=== PATIENT | male | born 1960 | race Caucasian/White ===

== ENCOUNTER 2017-05-31 08:28 | Emergency (ER) | payer OTHER, MEDICAID ==
[~2017-05-31] VITALS: Ht 182.9 cm; Wt 105.5 kg
[~2017-05-31 08:28] MED LIST: CLIN150 PO; FLUO20SO3 PO; HYDR-2768 PO; LISI-363 PO; WARF7.5T4 PO
[2017-05-31 08:30] VITALS: BP 118/86; PULSE 76; RESP 20; TEMP 98.2; O2SAT 97
[2017-05-31] MEDS ORDERED: FLUO1TAB3 PO (09:22)
[2017-05-31] MEDS ORDERED: WARF-21 PO (09:22)
[2017-05-31] MEDS ORDERED: HYDR25TA5 PO (09:22)
[2017-05-31] MEDS ORDERED: WARF-22 PO (09:22)
[2017-05-31] MEDS ORDERED: LISI-515 PO (09:22)
[2017-05-31] MEDS ORDERED: OMEP20TA PO (09:22)
[2017-05-31 10:28] LABS: PROTHROMBIN TIME - PATIENT 46.9 SEC (9.8-11.6)
--- NOTE | 2017-05-31 10:46 | RADRPT ---
EXAM DATE/TIME: 05/31/2017 10:42 [place] COMPARISON: No previous studies available for comparison. INDICATIONS : Right foor pain across metatarsal area due to kicking wall. MEDICAL HISTORY : None. SURGICAL HISTORY : None. ENCOUNTER: Initial ACUITY: 1 day PAIN SCORE: 10/10 LOCATION: Right foot FINDINGS: Three view examination of the right foot demonstrates a questionable nondisplaced lucency involving t he distal portion of the fifth proximal phalanx. This may represent a nondisplaced fracture. Recommen d correlation with point tenderness. Otherwise, the bony structures are grossly intact. No joint disl ocation. There is soft tissue swelling around the dorsum of the foot. There is a prominent heel spur. . CONCLUSION: 1. Questionable nondisplaced fracture involving the distal portion of the fifth proximal phalanx. Rec ommend correlation with point tenderness. 2. Diffuse soft tissue swelling. 3. Prominent heel spur. Miguelangel Encarnacion MD on May 31, 2017 at 10:43 Board Certified Radiologist. This report was verified electronically.
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
== END 2017-05-31 12:01 | disposition home or self-care (01) ==
LOC: NEPD 09:36
DX: S92.514A Nondisplaced fracture of proximal phalanx of right lesser toe(s), initial encounter for closed fracture (principal); I10 Essential (primary) hypertension; F17.200 Nicotine dependence, unspecified, uncomplicated; X58.XXXA Exposure to other specified factors, initial encounter
CPT/HCPCS: 73630; 85610; 99283; L3260; 29550

== ENCOUNTER 2018-03-26 18:04 | Emergency (ER) | payer OTHER, MEDICAID ==
[~2018-03-26] VITALS: Ht 182.9 cm; Wt 90.0 kg
[~2018-03-26 18:04] MED LIST changes: -CLIN150 PO; +FLUO1TAB3 PO; -FLUO20SO3 PO; -HYDR-2768 PO; +HYDR25TA5 PO; -LISI-363 PO; +LISI-515 PO; +OMEP20TA93 PO; +WARF-21 PO; +WARF-22 PO; -WARF7.5T4 PO
[2018-03-26 18:29] VITALS: BP 98/58; PULSE 98; RESP 15; TEMP 97.5; O2SAT 100
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
--- NOTE | 2018-03-26 21:24 | RADRPT ---
EXAM DATE: 03/26/2018 9:22 PM EDT AGE/SEX: 57 years / Male INDICATIONS: Left distal femur pain, fell CLINICAL DATA: This is the patient's initial encounter. Patient reports that signs and symptoms have been present for 1 day and indicates a pain score of 4/10. MEDICAL/SURGICAL HISTORY: . Left femur fracture . Hardware placement left hip COMPARISON: None. FINDINGS: Old trauma that is healed involving the proximal femoral metadiaphysis. 3 femoral neck screws seen tr aversing the femoral neck. No acute fracture or dislocation. Soft tissues are unremarkable. CONCLUSION: No acute abnormality. Electronically signed by: Kris Ellison MD 03/26/2018 9:23 PM EDT
--- NOTE | 2018-03-26 21:35 | RADRPT ---
EXAM DATE: 03/26/2018 9:24 PM EDT AGE/SEX: 57 years / Male INDICATIONS: Evaluate left knee for trauma, fell CLINICAL DATA: This is the patient's initial encounter. Patient reports that signs and symptoms have been present for 1 day and indicates a pain score of 4/10. MEDICAL/SURGICAL HISTORY: . Hip fracture . Hardware placement left hip COMPARISON: None . FINDINGS: Bony structures are intact and in normal alignment. Joints are intact without dislocation or signifi cant arthropathy. Osseous density is normal. Soft tissues are unremarkable. No radiopaque foreign bodies seen. CONCLUSION: Negative examination Electronically signed by: Kris Ellison MD 03/26/2018 9:34 PM EDT
[2018-03-26 21:57] VITALS: PULSE 90; RESP 16; O2SAT 99
--- NOTE | 2018-03-26 21:59 | RADRPT ---
EXAM DATE: 03/26/2018 9:53 PM EDT AGE/SEX: 57 years / Male INDICATIONS: Trauma, locker fell on patients knee. CLINICAL DATA: This is the patient's initial encounter. Patient reports that signs and symptoms have been present for 1 day and indicates a pain score of 7/10. MEDICAL/SURGICAL HISTORY: Hypertension. Deep venous thrombosis. . ORIF Left femur. RADIATION DOSE: 11.95 CTDI (mGy) COMPARISON: Left knee x-ray 03/26/2018 . TECHNIQUE: Multiple contiguous axial images were acquired using a multirow detector CT scanner witho ut contrast. Multiplanar reconstruction was performed in the sagittal and coronal planes. Using aut omated exposure control and adjustment of the mA and/or kV according to patient size, radiation dose was kept as low as reasonably achievable to obtain optimal diagnostic quality images. DICOM format i mage data is available electronically for review and comparison. FINDINGS: Bones: The bony structures about the knee are in normal alignment. The distal femur and proximal ti jacinta and fibula are intact. No fracture is seen. Joints: No significant arthropathy or bony hypertrophy is seen. Soft Tissues: Small joint effusion. No soft tissue mass is seen. Other: No foreign bodies seen. CONCLUSION: 1. Small joint effusion. Electronically signed by: Kris Ellison MD 03/26/2018 9:58 PM EDT
[2018-03-26 22:08] VITALS: BP 133/71; PULSE 86
[2018-03-26 22:10] LABS: AUTOMATED NEUTROPHIL # 6.4 TH/MM3 (1.8-7.7); BASOPHIL # 0.1 TH/MM3 (0-0.2); BASOPHIL % 0.7 % (0.0-2.0); EOSINOPHIL # 0.1 TH/MM3 (0-0.4); EOSINOPHIL % 1.5 % (0.0-4.0); HEMATOCRIT 32.8 % (39.0-51.0); HEMOGLOBIN 10.8 GM/DL (13.0-17.0); LYMPH % 23.8 % (9.0-44.0); LYMPHOCYTE # 2.3 TH/MM3 (1.0-4.8); MEAN CELL VOLUME 87.9 FL (80.0-100.0); MEAN CORPUSCULAR HEMOGLOBIN 28.9 PG (27.0-34.0); MEAN CORPUSCULAR HGB CONC 32.9 % (32.0-36.0); MEAN PLATELET VOLUME 8.3 FL (7.0-11.0); MONO % 7.5 % (0.0-8.0); MONOCYTE # 0.7 TH/MM3 (0-0.9); NEUT % 66.5 % (16.0-70.0); PLATELET COUNT 439 TH/MM3 (150-450); RED BLOOD COUNT 3.73 MIL/MM3 (4.50-5.90); RED CELL DISTRIBUTION WIDTH 17.3 % (11.6-17.2); WHITE BLOOD COUNT 9.7 TH/MM3 (4.0-11.0)
[2018-03-26 22:26] LABS: INTERNATIONAL NORMALIZED RATIO 4.1 RATIO; PROTHROMBIN TIME - PATIENT 40.8 SEC (9.8-11.6)
[2018-03-26 22:40] LABS: CALCIUM 8.4 MG/DL (8.5-10.1); CREATININE 1.02 MG/DL (0.60-1.30)
== END 2018-03-26 23:02 | disposition home or self-care (01) ==
LOC: NEPD 18:04
DX: S89.92XA Unspecified injury of left lower leg, initial encounter (principal); M25.462 Effusion, left knee; R79.1 Abnormal coagulation profile; I10 Essential (primary) hypertension; F31.9 Bipolar disorder, unspecified; F17.200 Nicotine dependence, unspecified, uncomplicated; Z79.01 Long term (current) use of anticoagulants; Z79.899 Other long term (current) drug therapy; Z88.0 Allergy status to penicillin; Z86.718 Personal history of other venous thrombosis and embolism
CPT/HCPCS: 73552; 73564; 73700; 80048; 85025; 85610; 99285; E0113

== ENCOUNTER 2018-03-30 16:37 | Inpatient (IN) | payer OTHER, MEDICAID, MEDICARE ==
[~2018-03-30] VITALS: Ht 180.3 cm; Wt 88.5 kg
[2018-03-30] MEDS ORDERED: IOHEXOL 350 MG/ML 10 ML VIAL (for RAD DIAG) IVCONTRAST ONE (16:38)
[2018-03-30 16:46] VITALS: BP 83/51; PULSE 110; RESP 16; TEMP 99.4; O2SAT 99
[2018-03-30 18:42] VITALS: BP 123/62; PULSE 97; RESP 18; O2SAT 96
[2018-03-30] MEDS ORDERED: MORPHINE SULFATE 2 MG/ML SYRINGE IV PUSH ONE (18:45)
[2018-03-30] MEDS ORDERED: SODIUM CHLOR 0.9% 1000 ML INJ 1,000 ML IV ONE (18:45)
[2018-03-30] MEDS ORDERED: ONDANSETRON ODT 4 MG TAB PO ONE (18:45)
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
[2018-03-30] MEDS ORDERED: MORPHINE SULFATE 4 MG/ML INJ IV PUSH ONE (19:00)
--- NOTE | 2018-03-30 19:04 | PD ---
Data Data Last Documented VS Vital Signs Date Time Temp Pulse Resp B/P (MAP) Pulse Ox O2 Delivery O2 Flow Rate FiO2 03/30/18 18:42 97 18 123/62 (82) 96 Room Air 03/30/18 16:[address] Abd/Pel W Iv Contrast(Rout) (03/30/18 ) Complete Blood Count With Diff (03/30/18 18:44) Comprehensive Metabolic Panel (03/30/18 18:44) Act Partial Throm Time (Ptt) (03/30/18 18:44) Prothrombin Time / Inr (Pt) (03/30/18 18:44) Alcohol (Ethanol) (03/30/18 18:44) Sodium Chlor 0.9% 1000 Ml Inj (Ns 1000 M (03/30/18 18:45) Ondansetron Odt (Zofran Odt) (03/30/18 18:45) Morphine Inj (Morphine Inj) (03/30/18 19:00) Urinalysis - C+S If Indicated (03/30/18 19:20) Red Blood Cells (Rbc) (03/30/18 19:20) Sodium Chlor 0.9% 250 Ml Inj (Ns 250 Ml (03/30/18 19:30) Type And Screen (03/30/18 19:20) Blood Product Administration (03/30/18 19:52) Sodium Chlor 0.9% 250 Ml Inj (Ns 250 Ml (03/30/18 20:00) Iohexol 350 Inj (Omnipaque 350 Inj) (03/30/18 16:38) Consult Ladarius Gts (03/30/18 ) Admit Order (Ed Use Only) (03/30/18 21:55) Labs Laboratory Tests Test 03/30/18 18:40 03/30/18 18:48 Urine Color YELLOW Urine Turbidity CLEAR Urine pH 5.0 Urine Specific [place] 1.018 Urine Protein NEG mg/dL Urine Glucose (UA) NEG mg/dL Urine Ketones NEG mg/dL Urine Occult Blood NEG Urine Nitrite NEG Urine Bilirubin NEG Urine Urobilinogen 4.0 OR GREATER mg/dL Urine Leukocyte Esterase NEG Urine RBC 1 /hpf Urine WBC 4 /hpf Urine Hyaline Casts 6 /lpf Urine Mucus FEW /lpf Microscopic Urinalysis Comment CULT NOT INDICATED White Blood Count 10.8 TH/MM3 Red Blood Count 2.51 MIL/MM3 Hemoglobin 7.3 GM/DL Hematocrit 22.5 % Mean Corpuscular Volume 89.6 FL Mean Corpuscular Hemoglobin 29.3 PG Mean Corpuscular Hemoglobin Concent 32.7 % Red Cell Distribution Width 16.7 % Platelet Count 393 TH/MM3 Mean Platelet Volume 8.7 FL Neutrophils (%) (Auto) 62.8 % Lymphocytes (%) (Auto) 20.5 % Monocytes (%) (Auto) 13.8 % Eosinophils (%) (Auto) 2.3 % Basophils (%) (Auto) 0.6 % Neutrophils # (Auto) 6.8 TH/MM3 Lymphocytes # (Auto) 2.2 TH/MM3 Monocytes # (Auto) 1.5 TH/MM3 Eosinophils # (Auto) 0.3 TH/MM3 Basophils # (Auto) 0.1 TH/MM3 CBC Comment DIFF FINAL Differential Comment Prothrombin Time 18.8 SEC Prothromb Time International Ratio 1.9 RATIO Activated Partial Thromboplast Time 32.5 SEC Blood Urea Nitrogen 25 MG/DL Creatinine 1.04 MG/DL Random Glucose 94 MG/DL Total Protein 7.8 GM/DL Albumin 3.2 GM/DL Calcium Level 8.1 MG/DL Alkaline Phosphatase 79 U/L Aspartate Amino Transf (AST/SGOT) 39 U/L Alanine Aminotransferase (ALT/SGPT) 28 U/L Total Bilirubin 0.8 MG/DL Sodium Level 137 MEQ/L Potassium Level 3.3 MEQ/L Chloride Level 103 MEQ/L Carbon Dioxide Level 22.3 MEQ/L Anion Gap 12 MEQ/L Estimat Glomerular Filtration Rate 74 ML/MIN Ethyl Alcohol Level LESS THAN 3 MG/DL [facility] Medical Record Reviewed: Yes Supervised Visit with KENNEDI: No Narrative Course During the course of the patient's emergency department visit, the patient's history, examination, and differential diagnosis were reviewed with the patient. The patient was placed on a clinical research monitor with oximetry and frequent blood pressure monitoring. The patient had IV access obtained and blood work sent for analysis. The patient's case was checked out to me by Dr. Martínez. Please see his complete history and physical. The patient's case was checked out to me at the conclusion of his shift. The patient presents after a reported history of having trauma to the left lower extremity on March 26 status post workup in the emergency department. X-rays showed no acute abnormality. CT scan of the knee without contrast on the left showed a small joint effusion, no other acute abnormality. At that time the patient was noted to have an elevated INR and is chronically anticoagulated related to a prior history of DVT. He held the Coumadin for 2 days and then restarted on Friday. He then began to experience hematuria. Patient has currently undergoing workup for possible traumatic injury in the retroperitoneum, versus injury to the kidney. The patient was initially provided normal saline 1 L IV fluid bolus, morphine 2 mg IV, Zofran 4 mg IV. The patient's laboratory studies were reviewed and remarkable for a white count of 10.8, hemoglobin 7.3 which is decreased from 10.8 on March 26 suspicious for an underlying area of bleeding, platelets 393 with 13.8 monocytes. The patient has been typed and crossmatched for 4 units of packed red blood cells to be placed on hold, 2 units to be administered immediately. CMP is remarkable for potassium of 3.3, BUN 25, GFR 74, calcium 8.1, AST 39, albumin 3.2. PT 18.8, INR has improved down to 1.9, PTT 32.5, alcohol level is less than 3. Radiology studies were reviewed and remarkable for Last Impressions Abdomen/Pelvis CT 03/30/18 0000 Signed Impressions: CONCLUSION: 1. No acute finding is identified to explain the patient's hematuria. No renal stones are seen. There is an 8 mm low-density lesion in the left kidney that i s too small to characterize. 2. Swelling of the left proximal thigh and mild edema in the left iliac fossa adjacent to the illiacus muscle which also demonstrates mild asymmetric thicken ing. A call has been placed out to the trauma surgeon on-call regarding this patient' s injury associated with anemia. The patient's results were discussed with the patient, including the plan of care. I explained that further testing and/ or monitoring is indicated based on the patient's history, examination, and/ or laboratory findings. Therefore, I recommended admission for additional evaluation. The patient expressed understanding and was agreeable with this plan. The patient was admitted to the hospital in guarded condition and [facility] Phys[facility] Communication Physician Communication The patient's case including history, pertinent physical examination findings, and laboratory studies were discussed with Dr. Watkins. The patient's case was discussed with Dr. Rush, the hospitalist. It was agreed that the patient would be admitted to the hospitalist service. Diagnosis Primary Impression: Traumatic hematoma of left thigh Qualified Codes: S70.12XD - Contusion of left thigh, subsequent encounter Additional Impression: Anemia Qualified Codes: D62 - Acute posthemorrhagic anemia Admitting Information Admitting Physician Requests: Admit Condition: Stable Abbey Amador MD Mar 30, 2018 19:04
[2018-03-30 19:16] LABS: AUTOMATED NEUTROPHIL # 6.8 TH/MM3 (1.8-7.7); BASOPHIL # 0.1 TH/MM3 (0-0.2); BASOPHIL % 0.6 % (0.0-2.0); EOSINOPHIL # 0.3 TH/MM3 (0-0.4); EOSINOPHIL % 2.3 % (0.0-4.0); HEMATOCRIT 22.5 % (39.0-51.0); HEMOGLOBIN 7.3 GM/DL (13.0-17.0); LYMPH % 20.5 % (9.0-44.0); LYMPHOCYTE # 2.2 TH/MM3 (1.0-4.8); MEAN CELL VOLUME 89.6 FL (80.0-100.0); MEAN CORPUSCULAR HEMOGLOBIN 29.3 PG (27.0-34.0); MEAN CORPUSCULAR HGB CONC 32.7 % (32.0-36.0); MEAN PLATELET VOLUME 8.7 FL (7.0-11.0); MONO % 13.8 % (0.0-8.0); MONOCYTE # 1.5 TH/MM3 (0-0.9); NEUT % 62.8 % (16.0-70.0); PLATELET COUNT 393 TH/MM3 (150-450); RED BLOOD COUNT 2.51 MIL/MM3 (4.50-5.90); RED CELL DISTRIBUTION WIDTH 16.7 % (11.6-17.2); WHITE BLOOD COUNT 10.8 TH/MM3 (4.0-11.0)
[2018-03-30 19:26] LABS: ALBUMIN 3.2 GM/DL (3.4-5.0); AST (GOT) 39 U/L (15-37); BICARBONATE 22.3 MEQ/L (21.0-32.0); BLOOD UREA NITROGEN 25 MG/DL (7-18); CALCIUM 8.1 MG/DL (8.5-10.1); CHLORIDE 103 MEQ/L (98-107); CREATININE 1.04 MG/DL (0.60-1.30); GLOMERULAR FILTRATION RATE 74 ML/MIN (>89); GLUCOSE,RANDOM 94 MG/DL (74-106); SODIUM (NA) 137 MEQ/L (136-145)
[2018-03-30 19:27] LABS: ALT (GPT) 28 U/L (12-78)
[2018-03-30 19:28] LABS: INTERNATIONAL NORMALIZED RATIO 1.9 RATIO; PROTHROMBIN TIME - PATIENT 18.8 SEC (9.8-11.6)
[2018-03-30 19:29] LABS: ALKALINE PHOSPHATASE 79 U/L (45-117); TOTAL BILIRUBIN ADULT 0.8 MG/DL (0.2-1.0); TOTAL PROTEIN 7.8 GM/DL (6.4-8.2)
[2018-03-30] MEDS ORDERED: SODIUM CHLOR 0.9% 250 ML INJ 250 ML IV ONE ×2 (19:30→20:00)
[2018-03-30 20:27] LABS: BILIRUBIN, URINE NEG (NEG); BLOOD, URINE NEG (NEG); GLUCOSE,URINE NEG (NEG); HYALINE CAST, URINE 6 /lpf (RARE); KETONE, URINE NEG (NEG); MUCUS URINE FEW /lpf (OCC); NITRITE,URINE NEG (NEG); URINE COLOR YELLOW (YELLW/STRAW); URINE LEUKOCYTE ESTERASE NEG (NEG)
--- NOTE | 2018-03-30 21:14 | RADRPT ---
EXAM DATE: 03/30/2018 8:12 PM EDT AGE/SEX: 57 years / Male INDICATIONS: Hematuria, previous INJURY TO LOWER PELVIS AND LEGS LAST FRIDAY CLINICAL DATA: This is the patient's initial encounter. Patient reports that signs and symptoms have been present for 1 day and indicates a pain score of 6/10. MEDICAL/SURGICAL HISTORY: Hypertension. Deep venous thrombosis. None. ORAL CONTRAST: No oral contrast ingested. RADIATION DOSE: 10.04 CTDI (mGy) COMPARISON: No prior exams available for comparison. TECHNIQUE: Multiple contiguous axial images were obtained through the abdomen and pelvis following b olus infusion of 70 ml Omnipaque 350 (iohexol) nonionic water-soluble contrast as a single exam dos e. No oral contrast ingested. Using automated exposure control and adjustment of the mA and/or kV ac cording to patient size, radiation dose was kept as low as reasonably achievable to obtain optimal di agnostic quality images. DICOM format image data is available electronically for review and comparis on. FINDINGS: Lower chest: No acute abnormality is identified. Hepatobiliary: No focal liver lesion is identified. Hepatic vasculature demonstrates no abnormality. No calcified gallstones are present. Kidneys: No hydronephrosis, stone, or mass. There is an 8 mm low-density lesion at the lower pole the left kidney that is too small to characterize. Adrenal Glands: Within normal limits. Spleen: Within normal limits. Pancreas: Within normal limits. Vascular: The aorta is nonaneurysmal. Bowel/Mesentery: The stomach and small bowel demonstrate no abnormality. No acute colon abnormality i s seen. There is no free intraperitoneal air or fluid. A small hiatal hernia is present. Abdominal Wall: No hernia is visualized. Retroperitoneum: No lymphadenopathy. Bladder: No wall thickening or mass. Reproductive: Within normal limits. Inguinal: No lymphadenopathy or hernia. Musculoskeletal: There are pins within the left proximal femur and these causes beam hardening artifa ct. Sclerosis in the left femoral head likely represents avascular necrosis. There is soft tissue swe lling of the left proximal thigh. Mild asymmetric thickening of the left iliac is muscle is also appr eciated with mild stranding in the adjacent fat. CONCLUSION: 1. No acute finding is identified to explain the patient's hematuria. No renal stones are seen. Ther e is an 8 mm low-density lesion in the left kidney that is too small to characterize. 2. Swelling of the left proximal thigh and mild edema in the left iliac fossa adjacent to the illiac us muscle which also demonstrates mild asymmetric thickening. Electronically signed by: Kris Bonilla MD 03/30/2018 9:13 PM EDT
[2018-03-30 22:25] VITALS: BP 113/71; PULSE 93; RESP 20; TEMP 98; O2SAT 100
[2018-03-30 22:50] VITALS: BP 117/58; PULSE 88; RESP 20; TEMP 98.5; O2SAT 100
[2018-03-31] VITALS (7 sets, daily range): BP systolic 99–141; BP diastolic 56–74; PULSE 67–90; RESP 18–20; TEMP 97.7–98.7; O2SAT 97–100
[2018-03-31] MEDS ORDERED: BISACODYL 10 MG SUPP RECTAL PRN (00:30)
[2018-03-31] MEDS ORDERED: ONDANSETRON ODT 4 MG TAB PO PRN (00:30)
[2018-03-31] MEDS ORDERED: HALOPERIDOL LACTATE 5 MG/ML AMP IM PRN (00:30)
[2018-03-31] MEDS ORDERED: LORazepam 2 MG TAB PO PRN (00:30)
[2018-03-31] MEDS ORDERED: SODIUM CHLORIDE 0.9% FLUSH 10 ML FLUSH IV FLUSH PRN (00:30)
[2018-03-31] MEDS ORDERED: MAGNESIUM HYDROXIDE SUSP 30 ML CUP PO PRN (00:30)
[2018-03-31] MEDS ORDERED: ACETAMINOPHEN 325 MG TAB PO PRN (00:30)
[2018-03-31] MEDS ORDERED: SENNOSIDES 8.6 MG TAB PO PRN (00:30)
[2018-03-31] MEDS ORDERED: NALOXONE HCL 0.4 MG/ML AMP IV PUSH PRN (00:30)
[2018-03-31] MEDS ORDERED: LACTULOSE SYRUP 20 GM/30 ML CUP PO PRN (00:30)
[2018-03-31] MEDS ORDERED: LORazepam 1 MG TAB PO PRN (00:30)
[2018-03-31] MEDS ORDERED: FLUMAZENIL 0.5 MG/5 ML VIAL IV PUSH PRN (00:30)
[2018-03-31] MEDS ORDERED: LORazepam 2 MG/ML VIAL IV PUSH PRN ×4 (00:30)
[2018-03-31] MEDS ORDERED: POTASSIUM CHLORIDE 20 MEQ CONTROLLED RELEASE TAB PO ONE (03:30)
--- NOTE | 2018-03-31 03:39 | HHI.HP ---
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 The patient was seen in the emergency department on 03/26/18 when a metal walker fell onto his left leg while he was sitting outside a convenience store. The patient reports he has been out of the house for the past 6 weeks binge drinking. He states that his left leg has continued to swell since the accident. He denies any shortness of breath or lightheadedness. No dizziness. No loss of consciousness. No fevers/chills. No chest pain or shortness of breath. No abdominal pain. No nausea/vomiting/diarrhea. Of note, the patient was noted to be supratherapeutic on his Coumadin when he was seen in the ED on and was told to hold off on his Coumadin until Friday when he resumed it. 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 MUST HAVE BEEN ENTERED IN ERROR ON 05/21/17 Uncoded Allergies: NKDA (Allergy, Severe, 3/7/12) Family History Negative for CAD/DM Social History Smokes approximately 1 pack per day. Has been drinking 4-516 ounce cans of beer daily. Denies illicit drugs. Physical Exam Vital Signs Vital Signs Date Time Temp Pulse Resp B/P (MAP) Pulse Ox O2 Delivery O2 Flow Rate FiO2 03/31/18 02:25 98.7 85 18 112/57 98 03/31/18 02:10 67 18 141/63 99 03/31/18 01:00 98.6 87 20 99/56 98 03/30/18 22:50 98.5 88 20 117/58 100 03/30/18 22:25 98.0 93 20 113/71 100 03/30/18 18:42 97 18 123/62 (82) 96 Room Air 03/30/18 16:46 99.4 110 16 83/51 (62) 99 Physical Exam GENERAL: male sitting up in bed SKIN: No rashes, ecchymoses or lesions. Cool and dry. HEAD: Atraumatic. Normocephalic. No temporal or scalp tenderness. EYES: Pupils equal round and reactive. Extraocular motions intact. No scleral icterus. No injection or drainage. ENT: Nose without bleeding, purulent drainage or septal hematoma. Throat without erythema, tonsillar hypertrophy or exudate. Uvula midline. Airway patent. NECK: Trachea midline. No JVD or lymphadenopathy. Supple, nontender, no meningeal signs. CARDIOVASCULAR: Regular rate and rhythm without murmurs, gallops, or rubs. RESPIRATORY: Clear to auscultation. Breath sounds equal bilaterally. No wheezes , rales, or rhonchi. GASTROINTESTINAL: Abdomen soft, non-tender, nondistended. No hepato-splenomegaly , or palpable masses. No guarding. MUSCULOSKELETAL: Left lower extremity significantly swollen with ecchymoses over the lateral aspect of the left thigh. Tender to palpation in that region. NEUROLOGICAL: Awake and alert. Cranial nerves II through XII intact. Motor and sensory grossly within normal limits. Normal speech. Laboratory Laboratory Tests Test 03/30/18 18:40 03/30/18 18:48 Urine Color YELLOW Urine Turbidity CLEAR Urine pH 5.0 Urine Specific [place] 1.018 Urine Protein NEG Urine Glucose (UA) NEG Urine Ketones NEG Urine Occult Blood NEG Urine Nitrite NEG Urine Bilirubin NEG Urine Urobilinogen 4.0 OR GREATER Urine Leukocyte Esterase NEG Urine RBC 1 Urine WBC 4 Urine Hyaline Casts 6 Urine Mucus FEW Microscopic Urinalysis Comment CULT NOT INDICATED White Blood Count 10.8 Red Blood Count 2.51 Hemoglobin 7.3 Hematocrit 22.5 Mean Corpuscular Volume 89.6 Mean Corpuscular Hemoglobin 29.3 Mean Corpuscular Hemoglobin Concent 32.7 Red Cell Distribution Width 16.7 Platelet Count 393 Mean Platelet Volume 8.7 Neutrophils (%) (Auto) 62.8 Lymphocytes (%) (Auto) 20.5 Monocytes (%) (Auto) 13.8 Eosinophils (%) (Auto) 2.3 Basophils (%) (Auto) 0.6 Neutrophils # (Auto) 6.8 Lymphocytes # (Auto) 2.2 Monocytes # (Auto) 1.5 Eosinophils # (Auto) 0.3 Basophils # (Auto) 0.1 CBC Comment DIFF FINAL Differential Comment Prothrombin Time 18.8 Prothromb Time International Ratio 1.9 Activated Partial Thromboplast Time 32.5 Blood Urea Nitrogen 25 Creatinine 1.04 Random Glucose 94 Total Protein 7.8 Albumin 3.2 Calcium Level 8.1 Alkaline Phosphatase 79 Aspartate Amino Transf (AST/SGOT) 39 Alanine Aminotransferase (ALT/SGPT) 28 Total Bilirubin 0.8 Sodium Level 137 Potassium Level 3.3 Chloride Level 103 Carbon Dioxide Level 22.3 Anion Gap 12 Estimat Glomerular Filtration Rate 74 Ethyl Alcohol Level LESS THAN 3 Result Diagram: 03/30/18184703/30/181847 Caprini VTE Risk Assessment Caprini VTE Risk Assessment: Mod/High Risk (score >= 2) Caprini Risk Assessment Model Point Value = 1 Point Value = 2 Point Value = 3 Point Value = 5 Age 41-60 Minor surgery BMI > 25 kg/m2 Swollen legs Varicose veins or History of unexplained or recurrent spontaneous Oral contraceptives or hormone replacement Sepsis (< 1 month) Serious lung disease, including pneumonia (< 1 month) Abnormal pulmonary function Acute myocardial infarction Congestive heart failure (< 1 month) History of inflammatory bowel disease Medical patient at bed rest Age 61-74 Arthroscopic surgery Major open surgery (> 45 min) Laparoscopic surgery (> 45 min) Malignancy Confined to bed (> 72 hours) Immobilizing plaster cast Central venous access Age >= 75 History of VTE Family history of VTE Factor V Leiden Prothrombin [id number] Lupus anticoagulant Anticardiolipin antibodies Elevated serum homocysteine Heparin-induced thrombocytopenia Other congenital or acquired thrombophilia Stroke (< 1 month) Elective arthroplasty Hip, pelvis, or leg fracture Acute spinal cord injury (< 1 month) Prophylaxis Regimen Total Risk Factor Score Risk Level Prophylaxis Regimen 0-1 Low Early ambulation 2 Moderate Order ONE of the following: *Sequential Compression Device (SCD) *Heparin 5000 units SQ BID 3-4 Higher Order ONE of the following medications: *Heparin 5000 units SQ TID *Enoxaparin/Lovenox 40 mg SQ daily (WT < 150 kg, CrCl > 30 mL/min) *Enoxaparin/Lovenox 30 mg SQ daily (WT < 150 kg, CrCl > 10-29 mL/min) *Enoxaparin/Lovenox 30 mg SQ BID (WT < 150 kg, CrCl > 30 mL/min) AND/OR *Sequential Compression Device (SCD) 5 or more Highest Order ONE of the following medications: *Heparin 5000 units SQ TID (Preferred with Epidurals) *Enoxaparin/Lovenox 40 mg SQ daily (WT < 150 kg, CrCl > 30 mL/min) *Enoxaparin/Lovenox 30 mg SQ daily (WT < 150 kg, CrCl > 10-29 mL/min) *Enoxaparin/Lovenox 30 mg SQ BID (WT < 150 kg, CrCl > 30 mL/min) AND *Sequential Compression Device (SCD) Assessment and Plan Assessment and Plan Assessment/plan: 1. Hematoma/anemia CT of the abdomen/pelvis significant for swelling of the left proximal thigh and mild edema in the left iliac fossa adjacent to the iliac muscle which also demonstrates mild asymmetric thickening Given the patient's anemia and recent trauma, concern for traumatic hematoma Trauma surgery consulted, appreciate recommendations Transfuse 2 units packed red blood cells 2. Alcohol abuse Thiamine/folate/multivitamins Monitor for signs of withdrawal CIWA protocol 3. Hypertension Continue home lisinopril and hydrochlorothiazide 4. Bipolar disorder Continue home Prozac 5. History of DVT/PE Holding home Coumadin for possible traumatic hematoma Resume once cleared by trauma surgery FEN N.p.o. Electrolytes: Status post p.o. potassium, monitor BMP Holding pharmacologic anticoagulation given possible hematoma Physician Certification 2 Midnight Certification Type: Admission for Inpatient Services Order for Inpatient Services The services are ordered in accordance with Medicare regulations or non- Medicare payer requirements, as applicable. In the case of services not specified as inpatient-only, they are appropriately provided as inpatient services in accordance with the 2-midnight benchmark. Estimated LOS (days): 2 2 days is the estimated time the patient will need to remain in the hospital, assuming treatment plan goals are met and no additional complications. Post-Hospital Plan: Not yet determined Micaela Rush MD Mar 31, 2018 03:39
[2018-03-31] MEDS: THIAMINE INJ 100 MG in SODIUM CHLORIDE 0.9% INJ 100 ML IV SCH (03:49)
[2018-03-31] MEDS: MULTIVITAMIN INJ 10 ML, FOLIC ACID INJ 1 MG in SODIUM CHLORID 0.9% 500 ML INJ 500 ML IV SCH (03:49)
--- NOTE | 2018-03-31 08:46 | MB ---
cc: Shahbaz Watkins MD DATE: 03/31/2018 CHIEF COMPLAINT: Left leg swelling status post large locker fell on the patient's lap, hematuria, anemia, blood loss. HISTORY OF PRESENT ILLNESS: The patient is a 57-year-old male who is status post a large 300 pound locker that fell on the patient's lap. This occurred 03/26/2018. The patient was initially seen in the emergency department with evaluation and scan. I was an essentially negative workup. The patient did have a supratherapeutic INR at that time and was told to hold off his Coumadin. The patient restarted his Coumadin and did note some significant swelling of his left leg and thigh with some pain. Therefore, the patient returned to the emergency department for further evaluation. The patient had a CT scan showing a thickening of his left leg and thigh. The patient also further complained of hematuria and was noted to have a hemoglobin of 7.3. Surgery was consulted for further evaluation. On my exam, the patient was noted to have several medical issues again including DVT on Coumadin. Further notes a history of TBI, ETOH abuse, hypertension, bipolar and previous trauma history many years ago for which he required left lower extremity reconstruction for fractures. The patient further noted complaints of hematuria for which he had a UA showing clear urine and 1 RBC. The patient further denies fevers, chills, dizziness, nausea, vomiting or dysuria. PAST MEDICAL HISTORY: DVT, bipolar, hypertension, ETOH abuse, TBI left femur fracture. PAST SURGICAL HISTORY: Left hip and left femur ORIF. Chest tube. SOCIAL HISTORY: Daily ETOH 6 pack, positive smoking 1 pack per day. Denies IVDA. ALLERGIES: PENICILLIN. MEDICATIONS: Coumadin, see EMR. FAMILY HISTORY: Denies diabetes or hypertension. REVIEW OF SYSTEMS: GENERAL: Denies fever or pain. HEENT: Denies eye pain, ear pain. NECK: Denies swelling or pain. LUNGS: Denies cough or wheeze. HEART: Denies palpitation or chest pain. ABDOMEN: Denies nausea or vomiting. GENITOURINARY: Complaints of hematuria. EXTREMITIES: Complains of left lower extremity pain and edema. NEUROLOGIC: History of traumatic brain injury. PHYSICAL EXAMINATION: GENERAL: No acute distress. VITAL SIGNS: Temperature 99.4, pulse 97, respirations 18, blood pressure 123/62, saturation 96%. HEENT: Pupils equal, round, and reactive. NECK: Supple. Trachea midline. LUNGS: Bilateral expansion, clear. HEART: S1, S2 regular. ABDOMEN: Soft, nontender, nondistended. MUSCULOSKELETAL: Ecchymosis over the anterior thigh, tenderness to palpation left lower thigh. Healed surgical scars. Positive distal pulses all extremities. NEUROLOGIC: 5/5 motor in all extremities. GCS of 15. PSYCHIATRIC: Appropriate mood, ETOH abuse. LABORATORY AND DIAGNOSTIC DATA: WBC 10.8, hemoglobin 7.3, hematocrit 22.5, platelets 393. Sodium 137, potassium 3.3, chloride 103, BUN 25, creatinine 1, glucose 94, albumin 3.2. INR 1.9. CT abdomen and pelvis reviewed by myself showing swelling in the left proximal thigh, mild edema adjacent to the iliac, asymmetric thickening. ASSESSMENT: 1. The patient is a 57-year-old male status post large locker falling on lap with left lower extremity pain and swelling to thigh and ecchymosis anemia. 2. Anemia of blood loss. 3. Hematuria. 4. Multiple medical problems. 5. History of Coumadin and deep venous thrombosis. PLAN: Had a full workup of patient with above main issues. At this point, recommend left lower extremity elevation, continue observation. The patient does have some swelling and thickening with some edema; however, I do not see any surgical drainable fluid at this time. The patient does have palpable distal pulses. Further, I recommend to hold Coumadin. The patient to receive 2 units of PRBCs and IV fluids and vitals appear stable following this. Await and recheck hemoglobin for blood loss anemia and recheck coag's including INR. In regards to hematuria, the patient did have a UA that did not appear too significant. If hematuria continues, would recommend a urology consult for possible cystoscopy for further evaluation. We will continue to follow. From the surgical standpoint, the patient can have a regular diet. MD PRANAY Ware/IVORY , 07:58 AM , 08:45 AM
[2018-03-31] MEDS: SODIUM CHLORIDE 0.9% FLUSH 10 ML FLUSH IV FLUSH SCH ×2 (09:00→21:10)
[2018-03-31] MEDS: DOCUSATE SODIUM 50 MG/SENNA 8.6 MG TAB PO SCH ×2 (09:00→21:09)
[2018-03-31] MEDS: LISINOPRIL 20 MG TAB PO SCH (09:57)
[2018-03-31] MEDS: PANTOPRAZOLE SOD 20 MG DELAYED RELEASE TAB PO SCH (09:57)
[2018-03-31] MEDS: HYDROCHLOROTHIAZIDE 25 MG TAB PO SCH (09:57)
[2018-03-31] MEDS: FLUoxetine HCL 20 MG CAP PO SCH (09:57)
[2018-03-31 10:29] LABS: AUTOMATED NEUTROPHIL # 5.1 TH/MM3 (1.8-7.7); BASOPHIL # 0.1 TH/MM3 (0-0.2); BASOPHIL % 1.1 % (0.0-2.0); EOSINOPHIL # 0.2 TH/MM3 (0-0.4); EOSINOPHIL % 2.9 % (0.0-4.0); HEMATOCRIT 25.1 % (39.0-51.0); HEMOGLOBIN 8.5 GM/DL (13.0-17.0); LYMPH % 21.8 % (9.0-44.0); LYMPHOCYTE # 1.9 TH/MM3 (1.0-4.8); MEAN CELL VOLUME 89.6 FL (80.0-100.0); MEAN CORPUSCULAR HEMOGLOBIN 30.4 PG (27.0-34.0); MONO % 13.9 % (0.0-8.0); MONOCYTE # 1.2 TH/MM3 (0-0.9); NEUT % 60.3 % (16.0-70.0); PLATELET COUNT 352 TH/MM3 (150-450); RED BLOOD COUNT 2.81 MIL/MM3 (4.50-5.90); RED CELL DISTRIBUTION WIDTH 15.5 % (11.6-17.2); WHITE BLOOD COUNT 8.5 TH/MM3 (4.0-11.0)
[2018-03-31 11:08] LABS: BICARBONATE 24.8 MEQ/L (21.0-32.0); CALCIUM 8.3 MG/DL (8.5-10.1); CREATININE 0.76 MG/DL (0.60-1.30)
[2018-03-31] MEDS: SODIUM CHLOR 0.9% 1000 ML INJ 1,000 ML IV SCH (13:55)
[2018-04-01] VITALS: BP 125/79; PULSE 84; RESP 18; TEMP 98.1; O2SAT 99
[2018-04-01] MEDS: THIAMINE INJ 100 MG in SODIUM CHLORIDE 0.9% INJ 100 ML IV SCH (01:27)
[2018-04-01] MEDS: MULTIVITAMIN INJ 10 ML, FOLIC ACID INJ 1 MG in SODIUM CHLORID 0.9% 500 ML INJ 500 ML IV SCH (01:27)
[2018-04-01] MEDS: SODIUM CHLOR 0.9% 1000 ML INJ 1,000 ML IV SCH (01:29)
[2018-04-01 08:00] VITALS: BP 113/85; PULSE 78; RESP 20; TEMP 97.6; O2SAT 98
[2018-04-01] MEDS ORDERED: WARF-21 PO (08:48)
[2018-04-01] MEDS: DOCUSATE SODIUM 50 MG/SENNA 8.6 MG TAB PO SCH (09:00)
[2018-04-01] MEDS: SODIUM CHLORIDE 0.9% FLUSH 10 ML FLUSH IV FLUSH SCH (09:00)
[2018-04-01] MEDS: PANTOPRAZOLE SOD 20 MG DELAYED RELEASE TAB PO SCH (09:03)
[2018-04-01] MEDS: FLUoxetine HCL 20 MG CAP PO SCH (09:03)
[2018-04-01] MEDS: HYDROCHLOROTHIAZIDE 25 MG TAB PO SCH (09:03)
[2018-04-01] MEDS: LISINOPRIL 20 MG TAB PO SCH (09:03)
[2018-04-01 09:07] LABS: AUTOMATED NEUTROPHIL # 5.2 TH/MM3 (1.8-7.7); BASOPHIL # 0.1 TH/MM3 (0-0.2); BASOPHIL % 0.6 % (0.0-2.0); EOSINOPHIL # 0.2 TH/MM3 (0-0.4); EOSINOPHIL % 2.9 % (0.0-4.0); HEMATOCRIT 25.3 % (39.0-51.0); HEMOGLOBIN 8.6 GM/DL (13.0-17.0); LYMPH % 20.7 % (9.0-44.0); LYMPHOCYTE # 1.7 TH/MM3 (1.0-4.8); MEAN CELL VOLUME 88.7 FL (80.0-100.0); MEAN CORPUSCULAR HEMOGLOBIN 30.1 PG (27.0-34.0); MEAN CORPUSCULAR HGB CONC 33.9 % (32.0-36.0); MEAN PLATELET VOLUME 8.5 FL (7.0-11.0); MONO % 13.4 % (0.0-8.0); MONOCYTE # 1.1 TH/MM3 (0-0.9); NEUT % 62.4 % (16.0-70.0); PLATELET COUNT 327 TH/MM3 (150-450); RED BLOOD COUNT 2.85 MIL/MM3 (4.50-5.90); RED CELL DISTRIBUTION WIDTH 15.7 % (11.6-17.2); WHITE BLOOD COUNT 8.3 TH/MM3 (4.0-11.0)
--- NOTE | 2018-04-01 09:27 | HHI.PR ---
Subjective Remarks Patient says he is feeling well. Reports pain is under control. Denies any chest pain shortness of breath. Denies nausea or vomiting. Objective Vital Signs Date Time Temp Pulse Resp B/P (MAP) Pulse Ox O2 Delivery O2 Flow Rate FiO2 04/01/18 08:00 97.6 78 20 113/85 (94) 98 04/01/18 00:00 98.1 84 18 125/79 (94) 99 03/31/18 20:00 98.4 86 18 130/70 (90) 97 03/31/18 16:00 97.9 77 18 110/68 (82) 100 03/31/18 12:00 97.7 79 18 113/73 (86) 98 I/O 03/31/18 03/31/18 03/31/18 04/01/18 04/01/18 04/01/18 07:00 15:00 23:00 07:00 15:00 23:00 Intake Total 1200 ml 510.2 ml 1600 ml Output Total 350 ml 800 ml 750 ml Balance 1200 ml 160.2 ml 800 ml -750 ml Intake Oral 1600 ml IV Total 510.2 ml Packed Cells 800 ml Blood Product IV Normal Saline Flush 400 ml Output Urine Total 350 ml 800 ml 750 ml # Voids 0 # Bowel Movements 1 Result Diagram: 04/01/18 0811 03/31/18 0958 Objective Remarks GENERAL: Patient lying in bed. Eating breakfast. Appears comfortable. SKIN: Warm and dry. HEAD: Normocephalic. EYES: No scleral icterus. No injection or drainage. NECK: Supple, trachea midline. No JVD or lymphadenopathy. CARDIOVASCULAR: Regular rate and rhythm without murmurs, gallops, or rubs. RESPIRATORY: Breath sounds equal bilaterally. No accessory muscle use. GASTROINTESTINAL: Abdomen soft, non-tender, nondistended. MUSCULOSKELETAL: No cyanosis, or edema. Hematoma continues left hip. No change. 2 x 2 centimeter abrasion to left anterior [place] without any surrounding erythema. Patient says he will make sure to address this with primary care on short-term follow-up BACK: Nontender without obvious deformity. No CVA tenderness. A/P Assessment and Plan //Hematoma/anemia CT of the abdomen/pelvis significant for swelling of the left proximal thigh and mild edema in the left iliac fossa adjacent to the iliac muscle which also demonstrates mild asymmetric thickening Given the patient's anemia and recent trauma, concern for traumatic hematoma Trauma surgery consulted, appreciate recommendations Transfuse 2 units packed red blood cells = Hemoglobin stable 8.6 today. Will have patient continue his warfarin tomorrow , decrease dose to 7.5 mg daily and follow-up with primary care. //Alcohol abuse Thiamine/folate/multivitamins Monitor for signs of withdrawal CIMO protocol = No signs of withdrawal. Cessation counseling discussed. 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 Electrolytes: Status post p.o. potassium, monitor BMP Restart lower dose of warfarin tomorrow. Follow-up with PCP in 2 days Discharge Planning Discharge home. Restart lower dose of warfarin tomorrow. Calixto Peñaloza MD Apr 01, 2018 09:27
--- NOTE | 2018-04-01 09:34 | HHI.DS ---
Discharge Summary Admission Date Mar 30, 2018 at 21:57 Discharge Date: Apr 01, 2018 Admitting Diagnosis Thigh Hematoma, Anemia, s/p trauma (1) Kidney lesion ICD Code: N28.9 - Disorder of kidney and ureter, unspecified (2) Traumatic hematoma of left thigh ICD Code: S70.12XA - Contusion of left thigh, initial encounter Status: Acute (3) Anemia ICD Code: D64.9 - Anemia, unspecified Status: Acute Procedures No invasive procedures. Brief History - From Admission 57-year-old male with a past medical history significant for previous DVT/PE anticoagulated on Coumadin, bipolar disorder, hypertension, alcohol abuse and history of TBI presents to the emergency department for the evaluation of hematuria. The patient was seen in the emergency department on 03/26/18 when a metal walker fell onto his left leg while he was sitting outside a convenience store. The patient reports he has been out of the house for the past 6 weeks binge drinking. He states that his left leg has continued to swell since the accident. He denies any shortness of breath or lightheadedness. No dizziness. No loss of consciousness. No fevers/chills. No chest pain or shortness of breath. No abdominal pain. No nausea/vomiting/diarrhea. Of note, the patient was noted to be supratherapeutic on his Coumadin when he was seen in the ED on and was told to hold off on his Coumadin until Friday when he resumed it. CBC/BMP: 04/01/18 0811 03/31/18 0958 Significant Findings Laboratory Tests Test 03/30/18 18:40 03/30/18 18:48 03/31/18 09:58 04/01/18 08:11 Urine Urobilinogen 4.0 OR GREATER mg/dL (LESS Urine Mucus FEW /lpf (OCC) Red Blood Count 2.51 MIL/MM3 (4.50-5.90) 2.81 MIL/MM3 (4.50-5.90) 2.85 MIL/MM3 (4.50-5.90) Hemoglobin 7.3 GM/DL (13.0-17.0) 8.5 GM/DL (13.0-17.0) 8.6 GM/DL (13.0-17.0) Hematocrit 22.5 % (39.0-51.0) 25.1 % (39.0-51.0) 25.3 % (39.0-51.0) Monocytes (%) (Auto) 13.8 % (0.0-8.0) 13.9 % (0.0-8.0) 13.4 % (0.0-8.0) Monocytes # (Auto) 1.5 TH/MM3 (0-0.9) 1.2 TH/MM3 (0-0.9) 1.1 TH/MM3 (0-0.9) Prothrombin Time 18.8 SEC (9.8-11.6) Activated Partial Thromboplast Time 32.5 SEC (24.3-30.1) Blood Urea Nitrogen 25 MG/DL (7-18) Albumin 3.2 GM/DL (3.4-5.0) Calcium Level 8.1 MG/DL (8.5-10.1) 8.3 MG/DL (8.5-10.1) Aspartate Amino Transf (AST/SGOT) 39 U/L (15-37) Potassium Level 3.3 MEQ/L (3.5-5.1) Estimat Glomerular Filtration Rate 74 ML/MIN (>89) Total Creatine Kinase 416 U/L (39-308) Imaging Last Impressions Abdomen/Pelvis CT 03/30/18 0000 Signed Impressions: CONCLUSION: 1. No acute finding is identified to explain the patient's hematuria. No renal stones are seen. There is an 8 mm low-density lesion in the left kidney that i s too small to characterize. 2. Swelling of the left proximal thigh and mild edema in the left iliac fossa adjacent to the illiacus muscle which also demonstrates mild asymmetric thicken ing. Hospital Course CT imaging as above. Patient had initial injury on Friday, came in on Friday because his mother thought she saw hematuria in the toilet bowl. Urinalysis on admission negative for hematuria. Imaging did show small lesion on CT as above , as well as swelling and hematoma. Trauma surgery was consulted. Patient did have anemia with hemoglobin of 7.3, and was transferred 2 units of PRBCs improving to 8.5. Hemoglobin remained stable at 8.6. Patient is on warfarin for history of DVT. INR 1.9 on admission. Warfarin was held. History of DVT 10 years ago uncertain if provoked or unprovoked. Will discharge on lower dose of warfarin, 7.5 mg daily will be started tomorrow, with close follow-up PCP. For problem based history from most recent progress note, please see below. //Hematoma/anemia CT of the abdomen/pelvis significant for swelling of the left proximal thigh and mild edema in the left iliac fossa adjacent to the iliac muscle which also demonstrates mild asymmetric thickening Given the patient's anemia and recent trauma, concern for traumatic hematoma Trauma surgery consulted, appreciate recommendations Transfuse 2 units packed red blood cells = Hemoglobin stable 8.6 today. Will have patient continue his warfarin tomorrow , decrease dose to 7.5 mg daily and follow-up with primary care. //Alcohol abuse Thiamine/folate/multivitamins Monitor for signs of withdrawal CIWA protocol = No signs of withdrawal. Cessation counseling discussed. 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 Electrolytes: Status post p.o. potassium, monitor BMP Restart lower dose of warfarin tomorrow. Follow-up with PCP in 2 days Discharge Planning Discharge home. Restart lower dose of warfarin tomorrow. Pt Condition on Discharge: Good Discharge Disposition: Discharge Home Discharge Time: > 30 minutes Discharge Instructions DIET: Follow Instructions for: As Tolerated, No Restrictions Activities you can perform: Weight Bearing as Lenny Follow up Referrals: PCP Follow-up - 2-3 Days with Marc Mercado DO Changed Medications: Warfarin (Warfarin) 7.5 Mg Tab 7.5 MG PO DAILY for Blood Clot Prevention, #30 TAB 0 Refills (Changed from: SA, ,,) Continued Medications: Fluoxetine (Fluoxetine) 20 Mg Tab 40 MG PO DAILY, #30 TAB 0 Refills Hydrochlorothiazide (Hydrochlorothiazide) 25 Mg Tab 25 MG PO DAILY, #30 TAB 0 Refills Lisinopril (Lisinopril) 20 Mg Tab 20 MG PO DAILY, #30 TAB 0 Refills Omeprazole (Omeprazole) 20 Mg Tab 20 MG PO DAILY, #30 TAB 0 Refills Discontinued Medications: Warfarin (Warfarin) 10 Mg Tab 10 MG PO M,W,F for Blood Clot Prevention, #30 TAB 0 Refills Calixto Peñaloza MD Apr 01, 2018 09:34
[2018-04-01 10:40] LABS: ALBUMIN 2.6 GM/DL (3.4-5.0); BICARBONATE 24.9 MEQ/L (21.0-32.0); CREATININE 0.59 MG/DL (0.60-1.30); MAGNESIUM 1.7 MG/DL (1.5-2.5); PHOSPHORUS 2.5 MG/DL (2.5-4.9)
[2018-04-03] MEDS ORDERED: THIAMINE HCL 100 MG TAB PO SCH (09:00)
== END 2018-04-01 10:50 | disposition home or self-care (01) | DRG 605 ==
LOC: NEPC 16:37 → NEDA 21:57 → N07A 03-31 01:21
PROVIDERS: ADMIT Internal Medicine; ATTEND Internal Medicine
PROC: 30233N1 Transfusion of Nonautologous Red Blood Cells into Peripheral Vein, Percutaneous Approach (ICD-10-PCS; principal; 2018-03-30)
DX: S70.12XA Contusion of left thigh, initial encounter (principal); I10 Essential (primary) hypertension; D50.0 Iron deficiency anemia secondary to blood loss (chronic); F10.10 Alcohol abuse, uncomplicated; F31.9 Bipolar disorder, unspecified; Z79.01 Long term (current) use of anticoagulants; Z86.711 Personal history of pulmonary embolism; Z86.718 Personal history of other venous thrombosis and embolism; N28.9 Disorder of kidney and ureter, unspecified; Z87.820 Personal history of traumatic brain injury; F17.210 Nicotine dependence, cigarettes, uncomplicated; W22.8XXA Striking against or struck by other objects, initial encounter; Y92.512 Supermarket, store or market as the place of occurrence of the external cause
CPT/HCPCS: 36430; 74177; 80048; 80053; 80069; 80307; 81001; 82550; 82552; 83735; 85025; 85610; 85730; 86850; 86900; 86901; 86920; 96360; J3411; J7030; J7040; J7050; P9016; Q9967